=== PATIENT | male | born 1945 | race Caucasian/White ===

== ENCOUNTER 2017-07-09 12:47 | Emergency (ER) | payer MEDICARE ==
[2017-07-09 12:59] VITALS: BMI 23.6
[2017-07-09] MEDS ORDERED: Naproxen 550 mg Tab PO STA (13:08)
--- NOTE | 2017-07-09 13:10 | C.PDOC ---
History Of Present Illness 71 y/o male presents to ED for evaluation of lower back pain. Pt states that he tripped on a cord, fell, and hit his lower back and the back of his head on the ground. No LOC. Denies headache, dizziness, visual changes, or neck pain. Note, pt takes Plavix, and Brilinta. Time Seen by Provider: 07/09/17 12:51 Chief Complaint (Nursing): Back Pain History Per: Patient History/Exam Limitations: no limitations Current Symptoms Are (Timing): Still Present Quality Of Discomfort: "Pain" Previous Symptoms: Back Pain, Prior Injury Associated Symptoms: denies: Incontinence, New Weakness, New Numbness Exacerbating Factor(s): Nothing Additional History Per: Patient Past Medical History Reviewed: Historical Data, Nursing Documentation, Vital Signs Vital Signs: Last Vital Signs Temp 98.1 F 07/09/17 12:55 Pulse 108 H 07/09/17 12:55 Resp 17 07/09/17 12:55 BP 171/82 H 07/09/17 12:55 Pulse Ox 95 07/09/17 14:25 - Medical History PMH: Diabetes, Kidney Stones, Chronic Kidney Disease Surgical History: Coronary Stent - [facility] Procedures CORONAR ARTERIOGR-2 CATH (01/15/14) INSERTION OF FOUR OR MORE VASCULAR STENTS (01/08/14) INSRT OF DRUG-ELUTING CORON ARTERY STENTS(S) (01/08/14) LEFT HEART CARDIAC CATH (01/15/14) LT HEART ANGIOCARDIOGRAM (01/15/14) PERCUTANEOUS TRANSLUMINAL CORONARY ANGIOPLASTY [PTCA] (01/15/14) PROCEDURE ON SINGLE VESSEL (01/15/14) PROCEDURE ON THREE VESSELS (01/08/14) Family History: States: Diabetes - Social History Hx Tobacco Use: No Hx Alcohol Use: Yes Hx Substance Use: No - Immunization History Hx Tetanus Toxoid Vaccination: No Hx Influenza Vaccination: No Hx Pneumococcal Vaccination: No Review Of Systems Except As Marked, All Systems Reviewed And Found Negative. Constitutional: Negative for: Fever, Chills Eyes: Negative for: Vision Change Gastrointestinal: Negative for: Nausea, Vomiting Musculoskeletal: Positive for: Back Pain Neurological: Negative for: Weakness, Numbness, Headache, Dizziness Physical Exam - Physical Exam Appears: Non-toxic, No Acute Distress Skin: Normal Color, Warm, Dry Head: Atraumatic, Normacephalic Eye(s): bilateral: Normal Inspection Oral Mucosa: Moist Neck: Normal ROM, No Midline Cervical Tenderness, No Paracervical Tenderness, Supple Chest: Symmetrical Cardiovascular: Rhythm Regular (mild tachycardia), No Murmur Respiratory: Normal Breath Sounds, No Rales, No Rhonchi, No Wheezing Gastrointestinal/Abdominal: Soft, No Tenderness Back: No Vertebral Tenderness, Paraspinal Tenderness (paralumbar L3-L5) Extremity: Bilateral: Hips Non-Tender, Normal ROM, Pelvis-Stable Neurological/Psych: Oriented x3, Normal Speech Gait: Steady ED Course And Treatment O2 Sat by Pulse Oximetry: 95 (RA) Pulse Ox Interpretation: Normal - Other Rad LS spine X-Ray: Viewed By Me, Read By Radiologist Interpretation: Accession No. : [id number]. Patient Name / ID : KALEB WATKINS / [id number]. Exam Date : 07/09/2017 13:22:10 ( Approved ). Study Comment : Sex / Age : M / 71Y. Creator : Jamil Meneses MD. Dictator : Jamil Meneses MD. Electrical Estimator : Bevel Gear Generator Operator : Jamil Meneses MD. Approver2 : Report Date : 07/09/2017 14:27:40. My Comment : . Lumbar spine three views. History: Low back pain. Comparison: None available. Findings: Prominent aortic calcification. Spine alignment maintained. Few superior mild endplate concavities at the L4 and L5 vertebral bodies as well as mild inferior endplate concavities at the L4 and L5 vertebral bodies. Minimal anterior osteophytosis at the L4 and L5 levels. Mild lower level facet hypertrophy and sclerosis. No evidence for acute displaced fracture. Limited evaluation of the sacrum secondary to overlying bowel gas. Impression: Degenerative changes. If pain persists, consider MRI. Sacrum/coccyx X-Ray: Interpreted by Me, Viewed By Me Interpretation: No acute fracture or dislocation - CT Scan/US Head CT Other Rad Studies (CT/US): Read By Radiologist, Radiology Report Reviewed CT/US Interpretation: Accession No. : [id number]. Patient Name / ID : KALEB WATKINS / [id number]. Exam Date : 07/09/2017 13:33:03 ( Approved ). Study Comment : Sex / Age : M / 71Y. Creator : Jamil Meneses MD. Dictator : Jamil Meneses MD. Electrical Estimator : Bevel Gear Generator Operator : Jamil Meneses MD. Approver2 : Report Date : 07/09/2017 13:59:10. My Comment : . PROCEDURE: CT HEAD WITHOUT CONTRAST. HISTORY: head injury. COMPARISON: None available. TECHNIQUE: Axial computed tomography images were obtained through the head/brain without intravenous contrast. Radiation dose: Total exam DLP = 909 mGy-cm. This CT exam was performed using one or more of the following dose reduction techniques: Automated exposure control, adjustment of the mA and/or kV according to patient size, and/or use of iterative reconstruction technique. FINDINGS: HEMORRHAGE: No intracranial hemorrhage. BRAIN: No mass effect or edema. Scattered focal lucencies in the subcortical and periventricular white matter suggestive for chronic microvascular ischemic change. VENTRICLES: Mild prominence. CALVARIUM: Unremarkable. PARANASAL SINUSES: Small mucosal retention cyst and or polyp in the right maxillary sinus. MASTOID AIR CELLS: Unremarkable as visualized. No inflammatory changes. OTHER FINDINGS: Mild soft tissue swelling overlying the left inferior frontal region. Intracranial vascular calcifications. IMPRESSION: No acute intracranial abnormality. Chronic microvascular ischemic changes. Mild soft tissue swelling overlying the left inferior frontal cranium. Intracranial vascular calcifications. Mild prominence of the ventricles. Progress Note: LS spine, sacrum/coccyx x-ray, head CT ordered and reviewed. Pt was given Naproxen, Flexeril, and Tylenol. On reassessment, patient is resting comfortably, with improvement of back pain. Patient remains afebrile, with no bony tenderness, extremity numbness or weakness, or abdominal pain. Patient is ambulatory in the emergency department with no signs of discomfort. Patient was advised to follow up with physician/clinic in 1-2 days. Disposition Counseled Patient/Family Regarding: Diagnosis, Need For Followup, Rx Given, Smoking Cessation - Disposition Referrals: Vasyl Katz MD [Primary Care Provider] - Disposition: HOME/ ROUTINE Disposition Time: 14:25 Condition: STABLE Additional Instructions: SEGUIMIENTO CON SORIANO MDICO EN 1-2 PRADO USE MEDICAMENTOS SEGN LO INDICADO REGRESE A LA ROSAS DE EMERGENCIA SI JESSY SNTOMAS FUNCIONAN Prescriptions: Cyclobenzaprine [Cyclobenzaprine HCl] 10 mg PO BID PRN #15 tab PRN Reason: Muscle Spasm Naproxen 375 mg PO BID PRN #20 tablet PRN Reason: pain Instructions: Head Injury (ED), Acute Low Back Pain (ED) Forms: [employer] (Trinidadian) Print Language: BURKINAN - POA Present On Arrival: Falls Or Trauma - Clinical Impression Clinical Impression: Lumbar sprain, Head injury, closed - Scribe Statement The provider has reviewed the documentation as recorded by the Susanneibsangita Ceja All medical record entries made by the Susanneibsangita were at my direction and personally dictated by me. I have reviewed the chart and agree that the record accurately reflects my personal performance of the history, physical exam, medical decision making, and the department course for this patient. I have also personally directed, reviewed, and agree with the discharge instructions and disposition.
--- NOTE | 2017-07-09 14:00 | CT ---
PROCEDURE: CT HEAD WITHOUT CONTRAST. HISTORY: head injury COMPARISON: None available. TECHNIQUE: Axial computed tomography images were obtained through the head/brain without intravenous contrast. Radiation dose: Total exam DLP = 909 mGy-cm. This CT exam was performed using one or more of the following dose reduction techniques: Automated exposure control, adjustment of the mA and/or kV according to patient size, and/or use of iterative reconstruction technique. FINDINGS: HEMORRHAGE: No intracranial hemorrhage. BRAIN: No mass effect or edema. Scattered focal lucencies in the subcortical and periventricular white matter suggestive for chronic microvascular ischemic change. VENTRICLES: Mild prominence. CALVARIUM: Unremarkable. PARANASAL SINUSES: Small mucosal retention cyst and or polyp in the right maxillary sinus. MASTOID AIR CELLS: Unremarkable as visualized. No inflammatory changes. OTHER FINDINGS: Mild soft tissue swelling overlying the left inferior frontal region. Intracranial vascular calcifications. IMPRESSION: No acute intracranial abnormality. Chronic microvascular ischemic changes. Mild soft tissue swelling overlying the left inferior frontal cranium. Intracranial vascular calcifications. Mild prominence of the ventricles.
--- NOTE | 2017-07-09 14:29 | RAD ---
Lumbar spine three views History: Low back pain. Comparison: None available. Findings: Prominent aortic calcification. Spine alignment maintained. Few superior mild endplate concavities at the L4 and L5 vertebral bodies as well as mild inferior endplate concavities at the L4 and L5 vertebral bodies. Minimal anterior osteophytosis at the L4 and L5 levels. Mild lower level facet hypertrophy and sclerosis. No evidence for acute displaced fracture. Limited evaluation of the sacrum secondary to overlying bowel gas. Impression: Degenerative changes. If pain persists, consider MRI.
[2017-07-09 15:16] VITALS: BP 156/82; PULSE 82; RESP 18; TEMP 98.3; O2SAT 97
--- NOTE | 2017-07-09 17:00 | RAD ---
Sacrum and coccyx three views History: Low back pain. Comparison: None available. Findings: Limited study with gaseous distention of bowel precluding evaluation of the sacrum. No evidence of acute displaced fracture or dislocation. Impression: Limited study. Negative acute. If pain persists, consider MRI.
== END 2017-07-09 15:17 | disposition home or self-care (01) ==
LOC: C.ER 12:47 → SUPCPDRO 12:47 → C.ER 15:17
DX: S09.90XA Unspecified injury of head, initial encounter (principal); S33.5XXA Sprain of ligaments of lumbar spine, initial encounter; W01.0XXA Fall on same level from slipping, tripping and stumbling without subsequent striking against object, initial encounter; E11.9 Type 2 diabetes mellitus without complications